=== PATIENT | female | born 1965 | race Caucasian/White ===

== ENCOUNTER 2018-09-05 11:24 | Outpatient (CLI) | payer BC ==
--- NOTE | 2018-09-05 11:40 | RAD ---
2 views chest: 09/05/2018 COMPARISON: None HISTORY: Chronic cough, difficulty breathing, asthma FINDINGS: Mild increased linear interstitial density. No pneumothorax, pleural fluid, focal consolida tion, or alveolar edema. Heart and mediastinal contours appear grossly unremarkable. IMPRESSION: No acute findings.
== END 2018-09-05 11:25 | disposition home or self-care (01) ==
LOC: BICRAD 11:24
PROVIDERS: ATTEND Family Medicine
DX: R05 Cough (principal)
CPT/HCPCS: 36415; 71046; 80053; 80061; 84443; 85025

== ENCOUNTER 2018-10-30 07:15 | Outpatient (CLI) | payer BC | END 2018-10-30 07:16 | disposition home or self-care (01) | LOC: CP 07:15 | PROVIDERS: ATTEND Family Medicine | DX: J45.909 Unspecified asthma, uncomplicated (principal) | CPT/HCPCS: 94010; 94727; 94729 ==

== ENCOUNTER 2021-01-12 09:31 | Outpatient (CLI) | payer BC | END 2021-01-12 09:32 | disposition home or self-care (01) | LOC: BICMAMMO 09:31 | PROVIDERS: ATTEND Family Medicine | DX: Z12.31 Encounter for screening mammogram for malignant neoplasm of breast (principal) | CPT/HCPCS: 77063; 77067 ==

== ENCOUNTER 2021-09-09 10:07 | Outpatient (CLI) | payer BC | END 2021-09-09 10:08 | disposition home or self-care (01) | LOC: BICRAD 10:07 | PROVIDERS: ATTEND Family Medicine | DX: M25.562 Pain in left knee (principal) ==

== ENCOUNTER 2021-11-14 13:35 | Outpatient (CLI) | payer BC ==
[2021-11-14 15:14] LABS: #Eosinphils 0.1 10x3/uL (0.0-0.5); #Monocytes 0.7 10x3/uL (0.0-1.1); #Neutrophils 6.4 10x3/uL (1.5-8.4); %Basophils 0.2 % (0.0-2.0); %Eosinophils 1.4 % (0.0-6.0); %Lymphocytes 20.8 % (18.0-47.0); %Monocytes 7.1 % (0.0-10.0); Hemoglobin 13.8 g/dL (12.0-15.5); Mean Corpuscular HGB CONC 32.7 g/dL (32.0-36.0); Mean Corpuscular Hemoglobin 33.2 pg (27.0-33.0); Mean Corpuscular Volume 101.4 fl (81.6-98.3); Mean Platelet Volume 11.7 fl (7.4-10.4); Platelet Count 214 10x3/uL (150-450); RBC Distribution Width 13.1 % (11.5-14.5); Red Blood Cell (RBC) Count 4.16 10x6/uL (3.90-5.03); White Blood Cell (WBC) Count 9.1 10x3/uL (3.5-10.5)
[2021-11-14 15:39] LABS: Prothrombin Time 10.4 sec (9.5-12.1)
[2021-11-14 15:45] LABS: Anion Gap 14 mmol/L (10-20); BUN (Urea Nitrogen) 20 mg/dL (9.8-20.1); Calc. Creatinine Clearance 0 mL/min (70-130); Carbon Dioxide 26 mmol/L (22-29); Chloride 107 mmol/L (98-107); Estimated GFR 82; Glucose 107 mg/dL (70-105); Potassium 3.8 mmol/L (3.5-5.1); Sodium 143 mmol/L (136-145)
== END 2021-11-14 13:36 | disposition home or self-care (01) ==
LOC: LABBT 13:35
PROVIDERS: ATTEND Orthopaedic Surgery
DX: Z01.818 Encounter for other preprocedural examination (principal); T84.093A Other mechanical complication of internal left knee prosthesis, initial encounter; Z20.822 Contact with and (suspected) exposure to COVID-19
CPT/HCPCS: 80048; 85025; 85610; 87081; 87811; 93005; 93010

== ENCOUNTER 2021-11-14 14:00 | Inpatient (IN) | payer BC ==
[2021-11-15 12:47] VITALS: BMI 29.8
[2021-11-17] MEDS ORDERED: Vancomycin (BATCH) 1.5 GRAM/300 ML BAG ONE (07:25)
[2021-11-17] MEDS ORDERED: Tranexamic Acid 1,000 MG/10 ML VIAL ONE (07:25)
[2021-11-17] MEDS ORDERED: Sodium Chloride 0.9% 100 ML ONE ×2 (07:25→08:47)
[2021-11-17] MEDS ORDERED: Fentanyl 100 MCG/2 ML VIAL ONE ×2 (08:15→12:36)
[2021-11-17] MEDS ORDERED: Midazolam HCl 2 mg/2 ml Vial ONE (08:15)
[2021-11-17] MEDS ORDERED: Bupivacaine PF 0.5% 30 ML VIAL ONE (08:43)
[2021-11-17] MEDS ORDERED: CEFAZOLIN 2 GM VIAL ONE (08:47)
[2021-11-17] MEDS ORDERED: Fentanyl 100 MCG/2 ML VIAL IV PRN (09:05)
[2021-11-17] MEDS ORDERED: Acetaminophen 325 MG TAB PO PRN (09:11)
[2021-11-17] MEDS ORDERED: Zolpidem Tartrate 5 MG TAB PO PRN ×2 (09:11→09:15)
[2021-11-17] MEDS ORDERED: Promethazine HCl 25 MG/ML VIAL IM PRN ×3 (09:11→11:45)
[2021-11-17] MEDS ORDERED: Ondansetron PF 4 MG/2 ML Vial IVP PRN ×2 (09:11→09:15)
[2021-11-17] MEDS ORDERED: diphenhydrAMINE 25 MG CAP PO PRN (09:11)
[2021-11-17] MEDS ORDERED: Albuterol 200 PUFF (6.7GM INHALER) INH PRN (09:12)
[2021-11-17] MEDS ORDERED: Propofol 500 MG/50 ML VIAL ONE ×2 (09:14→10:30)
[2021-11-17] MEDS ORDERED: traMADol HCl 50 MG TAB PO PRN ×2 (09:15)
[2021-11-17] MEDS ORDERED: Ropivacaine 0.2% 550 ML 550 ML NERVE BLCK SCH (09:15)
[2021-11-17] MEDS ORDERED: HYDROcodone/Acetaminophen 10/325 mg Tablet PO PRN ×2 (09:15)
[2021-11-17] MEDS ORDERED: Lidocaine 1% PF 5 ML VIAL ONE (09:25)
[2021-11-17] MEDS ORDERED: Ondansetron PF 4 MG/2 ML Vial ONE (09:25)
[2021-11-17] MEDS ORDERED: Bupivacaine HCl 0.5%/Epinephrine 1:200,000/PF 30 ml Vial ONE (09:25)
[2021-11-17] MEDS ORDERED: Ondansetron HCl/PF 4 MG/2 ML Vial IVP PRN (11:45)
[2021-11-17] MEDS ORDERED: Promethazine HCl 25 MG/ML VIAL IVPB PRN (11:45)
[2021-11-17] MEDS ORDERED: Ketorolac Tromethamine 30 MG/ML VIAL ONE (11:50)
[2021-11-17] MEDS: Ketorolac Tromethamine 30 MG/ML VIAL IVP SCH ×3 (11:55→23:33)
[2021-11-17] MEDS: Sodium Chloride 0.9% 1,000 ML IV SCH ×2 (12:00→19:22)
[2021-11-17] MEDS: Carvedilol 3.125 MG TAB PO SCH (17:06)
[2021-11-17] MEDS: CEFAZOLIN 2 GM in Sodium Chloride 0.9% 100 ML IVPB SCH ×2 (17:06→23:34)
[2021-11-17] MEDS: Mometasone 100 MCG/Formoterol 5 MCG 120 PUFF INHALER INH SCH (18:38)
[2021-11-17] MEDS: Aspirin 81 mg Enteric Coated Tablet PO SCH (20:29)
[2021-11-17] MEDS ORDERED: Non-Formulary Item 1 EACH (Zolpidem Tartrate [Zolpidem Tartrate] 10 MG Tablet) PO SCH (21:00)
[2021-11-18] MEDS: Sodium Chloride 0.9% 1,000 ML IV SCH (04:21)
[2021-11-18] MEDS: Ketorolac Tromethamine 30 MG/ML VIAL IVP SCH ×2 (05:14→12:46)
[2021-11-18 05:42] LABS: Hemoglobin 12.1 g/dL (12.0-16.0); Mean Corpuscular HGB CONC 33.1 g/dL (32.0-36.0); Mean Corpuscular Hemoglobin 34.9 pg (27.0-31.0); Mean Platelet Volume 9.2 fL (7.4-10.4); Platelet Count 152 thou/uL (130-400); RBC Distribution Width 11.7 % (11.5-14.5); Red Blood Cell (RBC) Count 3.45 mill/uL (4.20-5.40); White Blood Cell (WBC) Count 9.4 thou/uL (4.8-10.8)
[2021-11-18] MEDS: Mometasone 100 MCG/Formoterol 5 MCG 120 PUFF INHALER INH SCH (06:56)
[2021-11-18] MEDS ORDERED: Ferrous Gluconate 324 MG TAB PO SCH (08:00)
[2021-11-18] MEDS ORDERED: Senokot S 8.6-50 MG TAB PO SCH (09:00)
[2021-11-18] MEDS ORDERED: Multivitamin W/ Minerals 1 TAB PO SCH (09:00)
[2021-11-18] MEDS ORDERED: Ascorbic Acid 500 mg Chewable Tablet PO SCH (09:00)
[2021-11-18] MEDS ORDERED: Cholecalciferol 1,000 UNITS (25 MCG) TAB PO SCH (09:00)
[2021-11-18] MEDS: Carvedilol 3.125 MG TAB PO SCH (10:11)
[2021-11-18] MEDS: Aspirin 81 mg Enteric Coated Tablet PO SCH (10:11)
[2021-11-18 12:09] VITALS: BP 141/71; TEMP 98.1
== END 2021-11-18 13:15 | disposition home or self-care (01) | DRG 468 ==
LOC: SURG A 11-17 06:11
PROVIDERS: ADMIT Orthopaedic Surgery; ATTEND Orthopaedic Surgery
PROC: 0SRD0JA Replacement of Left Knee Joint with Synthetic Substitute, Uncemented, Open Approach (ICD-10-PCS; principal; 2021-11-17)
PROC: 0SPD0JZ Removal of Synthetic Substitute from Left Knee Joint, Open Approach (ICD-10-PCS; 2021-11-17)
PROC: 3E0T3BZ Introduction of Anesthetic Agent into Peripheral Nerves and Plexi, Percutaneous Approach (ICD-10-PCS; 2021-11-17)
DX: T84.093A Other mechanical complication of internal left knee prosthesis, initial encounter (principal); Z20.822 Contact with and (suspected) exposure to COVID-19; I10 Essential (primary) hypertension; F51.04 Psychophysiologic insomnia; J45.909 Unspecified asthma, uncomplicated; F41.9 Anxiety disorder, unspecified; M19.90 Unspecified osteoarthritis, unspecified site; Z98.890 Other specified postprocedural states; Z87.442 Personal history of urinary calculi; Z90.710 Acquired absence of both cervix and uterus; Z79.899 Other long term (current) drug therapy; Z86.16 Personal history of COVID-19; Z98.51 Tubal ligation status
CPT/HCPCS: 36415; 85027; A4306; C1713; C1776; J0690; J1885; J2250; J2405; J2704; J2795; J3010; J3370; J3490; J7050; S0020

== ENCOUNTER 2022-12-29 09:49 | Emergency (ER) | payer BC ==
[2022-12-29] MEDS ORDERED: Boostrix 0.5 ML (Tdap) VIAL (>/=7 yrs of age) ONE (10:36)
== END 2022-12-29 10:50 | disposition home or self-care (01) ==
LOC: ERS 09:49
DX: S81.801A Unspecified open wound, right lower leg, initial encounter (principal); L03.115 Cellulitis of right lower limb
CPT/HCPCS: 90471; 90715; 99283